=== PATIENT | female | born 2000 | race Caucasian/White ===

== ENCOUNTER → 2019-02-01 | Outpatient (CLI) | payer BC ==
[~2019-02-01] MED LIST: CLIN150 PO; CODACE30 PO; OTC ALLERGY
[2019-02-01 14:42] LABS: Candida species (DNA Probe) Negative (NEGATIVE); G. vaginalis (DNA Probe) Negative (NEGATIVE); T. vaginalis (DNA Probe) Negative (NEGATIVE)
== END | disposition home or self-care (01) ==
LOC: LAB 10:00 → LAB SHORT 10:00
PROVIDERS: Advanced Practice Midwife
DX: N89.9 Noninflammatory disorder of vagina, unspecified (principal); L29.9 Pruritus, unspecified
CPT/HCPCS: 87480; 87510; 87529; 87660

== ENCOUNTER → 2020-07-30 | Outpatient (CLI) | payer BC | LOC: LAB EV 08:07 → LAB SHORT 08:07 | DX: J03.90 Acute tonsillitis, unspecified (principal) | CPT/HCPCS: 87081; 87147 ==